=== PATIENT | female | born 1940 | race Caucasian/White ===

== ENCOUNTER 2018-06-22 07:42 | Emergency (ER) | payer MEDICARE ==
[~2018-06-22] VITALS: Ht 160 cm; Wt 79.0 kg
[~2018-06-22 07:42] MED LIST: ARIXTR SC; ASPIRIN LOW81 M1 PO; CINNAMON500 MG OR; LISINOPRIL5 MG PO; METHIMAZOLE5 MG; MULTIVITAMI1 OR; PEPCID20 MG PO; PERCOCET 5/325M1 TAB PO
[2018-06-22] MEDS ORDERED: LORATADINE10 M1 PO (08:07)
[2018-06-22] MEDS ORDERED: METFORMIN500 MG PO (08:07)
[2018-06-22 08:56] LABS: HEMATOCRIT 38.2 % (37.0-47.0); IMMATURE GRANULOCYTES 0.4 % (0.0-5.0); NEUT# 3.42 thou/uL (2.00-7.15); RED BLOOD COUNT 4.34 mill/uL (4.20-5.60)
[2018-06-22 09:16] LABS: ACT PARTIAL THROMBO TIME 25.6 SECONDS (20.0-32.5); ANION GAP 14 (6-22 (CALC)); BUN 14 mg/dL (8-23); BUN/CREATININE RATIO 22 (12-20 (CALC)); CARBON DIOXIDE 27 mmol/l (22-30); CHLORIDE 102 mmol/l (95-108); CREATININE 0.6 mg/dL (0.5-1.0); D-DIMER 0.32 mg/L (0.19-0.60); GFR > 60 ML/MIN (>=60 (CALC)); GFR FOR AFR.AMER. > 60 ML/MIN (>=60 (CALC)); PROTHROMBIN TIME 10.4 SECONDS (9.0-12.5); SODIUM 139 mmol/l (137-146)
[2018-06-22] MEDS ORDERED: VOLTAREN - GENE75 MG PO (09:54)
[2018-06-22 10:06] VITALS: BP 171/76
== END 2018-06-22 10:15 | disposition home or self-care (01) ==
LOC: ED 07:42
PROVIDERS: Family Medicine
DX: M17.12 Unilateral primary osteoarthritis, left knee (principal); M79.605 Pain in left leg; M79.662 Pain in left lower leg; Z86.718 Personal history of other venous thrombosis and embolism; Z79.82 Long term (current) use of aspirin; E11.9 Type 2 diabetes mellitus without complications; Z79.84 Long term (current) use of oral hypoglycemic drugs

== ENCOUNTER 2020-12-24 07:21 | Emergency (ER) | payer MEDICARE ==
[~2020-12-24 07:21] MED LIST changes: +LORATADINE10 M1 PO; +METFORMIN500 MG PO; +VOLTAREN - GENE75 MG PO
[2020-12-24] MEDS ORDERED: GABAPENTIN100 MG PO (08:29)
[2020-12-24] MEDS ORDERED: XALATAN0.005 % OU (08:30)
[2020-12-24 08:57] LABS: HEMATOCRIT 37.9 % (37.0-47.0); IMMATURE GRANULOCYTES 0.3 % (0.0-5.0); MEAN CELL VOLUME 87.1 fL CALC (80.0-100.0); MEAN CORPUSCULAR HGB 29.9 pG CALC (26.0-32.0); MEAN CORPUSCULAR HGB CONC 34.3 g/dL CAL (32.0-36.0); NEUT# 11.37 thou/uL (2.00-7.15); RED BLOOD COUNT 4.35 mill/uL (4.20-5.60); RED CELL DISTRI WIDTH 12.8 % (11.5-15.5)
[2020-12-24 08:58] LABS: URINE BILIRUBIN - DIPSTICK NEGATIVE (NEGATIVE); URINE BLOOD DIPSTICK LARGE (NEGATIVE); URINE GLUCOSE - DIPSTICK >=1000 mg/dL (NEGATIVE); URINE KETONE NEGATIVE (NEGATIVE); URINE PROTEIN - DIPSTICK 30 mg/dL (NEG-TRACE); URINE SPECIFIC GRAVITY 1.015; URINE UROBILINOGEN - DIPSTICK 0.2 E.U./dL (0.2)
[2020-12-24 09:03] LABS: URINE COLOR DK. YELLOW; URINE LEUK ESTERASE SMALL (NEGATIVE); URINE NITRITE - DIPSTICK POSITIVE (Negative)
[2020-12-24 09:04] LABS: URINE BACTERIA FEW hpf; URINE EPITHELIAL CELLS RARE EPI/hpf (0-FEW); URINE RBC 50-100 RBC/hpf (0-5)
[2020-12-24 09:21] LABS: ALBUMIN 4.5 g/dL (3.2-5.0); ALKALINE PHOSPHATASE 65 u/l (38-126); ANION GAP 14 (6-22 (CALC)); BILIRUBIN, TOTAL 0.7 mg/dL (0.0-1.4); BUN 14 mg/dL (8-23); BUN/CREATININE RATIO 21 (12-20 (CALC)); CARBON DIOXIDE 27 mmol/l (22-30); CHLORIDE 98 mmol/l (95-108); CREATININE 0.6 mg/dL (0.5-1.0); GFR > 60 ML/MIN (>=60 (CALC)); GFR FOR AFR.AMER. > 60 ML/MIN (>=60 (CALC)); POTASSIUM 4.2 mmol/l (3.5-5.1); SGOT/AST 28 u/l (9-36); SODIUM 135 mmol/l (137-146); TOTAL PROTEIN 7.4 g/dL (6.3-8.2)
[2020-12-24 09:52] LABS: TSH, 3RD GENERATION 0.19 uIU/mL (0.47 - 4.68)
[2020-12-24] MEDS ORDERED: CIPROFLOXACN500 MG PO (10:50)
[2020-12-24 10:57] VITALS: BP 150/85
== END 2020-12-24 11:10 | disposition home or self-care (01) ==
LOC: ED 07:21
DX: N39.0 Urinary tract infection, site not specified (principal); E03.9 Hypothyroidism, unspecified; E11.9 Type 2 diabetes mellitus without complications; B96.20 Unspecified Escherichia coli [E. coli] as the cause of diseases classified elsewhere; Z86.718 Personal history of other venous thrombosis and embolism; Z79.84 Long term (current) use of oral hypoglycemic drugs
CPT/HCPCS: J1956

== ENCOUNTER 2021-01-06 02:43 | Observation (INO) | payer MEDICARE ==
[~2021-01-06] VITALS: Ht 160 cm; Wt 83.0 kg
[~2021-01-06 02:43] MED LIST changes: +CIPROFLOXACN500 MG PO; +GABAPENTIN100 MG PO; +XALATAN0.005 % OU
--- NOTE | 2021-01-06 04:53 | NUR ---
PT IS RESTING COMFORTABLLY WITH NAD.
--- NOTE | 2021-01-06 05:47 | NUR ---
PT IS RESTING IN ROOM - STILL NO CHANGE IN CONDITION AND PT WILL BE UNDER OBSERVATION A LONGER PERIOD OF TIME
--- NOTE | 2021-01-06 06:38 | NUR ---
PT HAS BEEN INFORMED THAT SHE IS BEING ADMITTED TO OBS TO MONITOR ANGIOEDEMA.
[2021-01-06] MEDS ORDERED: CIPROFLOXACN500 MG PO (07:14)
--- NOTE | 2021-01-06 07:33 | NUR ---
PT RESTING ON STRETCHER, COMPLETED EKG/URINE COLLECTION/MED REC AND UPDATED PT ON PLAN OF CARE AND ABOUT PENDING ADMISSION. DELAY IS DISCUSSED WELL.
--- NOTE | 2021-01-06 08:19 | NUR ---
PT COMPLETED ABOUT 45% OF HER BFAST. SHE IS UPDATED ON PLAN OF CARE AND DELAY ON ADMISSION. PT VERBALIZED UNDERSTANDING.
--- NOTE | 2021-01-06 08:30 | NUR ---
GAVE REPORT TO JOSIAS
--- NOTE | 2021-01-06 08:43 | NUR ---
PT TRANSPORTED TO [facility] STABLE AND IN NO DISTRESS VIA W/C CARE ASSUMED TO JOSIAS Admission Note Report Given to: JOSIAS Transported by: X Wheelchair Stretcher Transported with: X Nurse Transporter X Patent IV O2 X Auto Machinist Location: ICU X MS2
[2021-01-06 08:44] VITALS: BP 144/70
--- NOTE | 2021-01-06 08:58 | NUR ---
REPORT RECEIVED FROM JACK IN ED, PT TRANSPORTED TO UNIT VIA W/C @ 0840, ALERT AND ORIENTED X 4, DENIES PAIN, ORIENTED TO ROOM AND CALL FERNANDEZ, INVENTORY LIST COMPLETED AND ALL REPORTED ITEMS CHECKED. EDUCATED ON ANTICOAGULATION PROTOCOL AND STATED UNDERSTANDING, CHALINO MURPHY APPLIED. SETTLED IN ROOM AT THIS TIME, CALL FERNANDEZ IN REACH.
[2021-01-06 10:58] VITALS: BP 143/78
--- NOTE | 2021-01-06 12:01 | NUR ---
ROUNDED, DISCUSSED PLAN OF CARE AND WROTE ORDERS, PT STATES UNDERSTANDING.
[2021-01-06] MEDS ORDERED: TOPROL XL25 MG PO (13:36)
[2021-01-06] MEDS ORDERED: PROTONIX40 M2 PO (13:48)
[2021-01-06] MEDS ORDERED: MEDDOSEPAK PO (13:57)
--- NOTE | 2021-01-06 15:15 | NUR ---
Discharge instructions given. Patient verbalizes understanding of same. Discharged in good condition via Wheelchair to Home with significant other. All belongings sent with pt.
== END 2021-01-06 15:15 | disposition home or self-care (01) ==
LOC: ED 02:43 → ED-I 06:20 → ED 06:33 → MS2 06:34
PROVIDERS: ADMIT Internal Medicine; ATTEND Internal Medicine
DX: T78.3XXA Angioneurotic edema, initial encounter (principal); T46.4X5A Adverse effect of angiotensin-converting-enzyme inhibitors, initial encounter; R00.0 Tachycardia, unspecified; I10 Essential (primary) hypertension; E11.40 Type 2 diabetes mellitus with diabetic neuropathy, unspecified; K21.9 Gastro-esophageal reflux disease without esophagitis; E05.90 Thyrotoxicosis, unspecified without thyrotoxic crisis or storm; Z79.84 Long term (current) use of oral hypoglycemic drugs; Z86.718 Personal history of other venous thrombosis and embolism; Z20.822 Contact with and (suspected) exposure to COVID-19
CPT/HCPCS: G0378

== ENCOUNTER 2023-08-09 10:16 | Day surgery (SDC) | payer MEDICARE ==
[~2023-08-09] VITALS: Ht 157.5 cm; Wt 70.8 kg
[~2023-08-09 10:16] MED LIST changes: +MEDDOSEPAK PO; +PROTONIX40 M2 PO; +TOPROL XL25 MG PO
[2023-08-09] MEDS ORDERED: PROTONIX40 M2 PO (11:00)
[2023-08-09] MEDS ORDERED: METAMUCIL28.3 % PO (11:05)
[2023-08-09] MEDS ORDERED: VITAMIN C + PO (11:06)
[2023-08-09] MEDS ORDERED: VITAMIN D-32000 UNI1 (11:06)
[2023-08-09] MEDS ORDERED: IRON325 M1 (11:07)
[2023-08-09 11:16] VITALS: BP 149/67
== END 2023-08-09 12:38 | disposition home or self-care (01) ==
LOC: ORM 10:16
PROVIDERS: ATTEND Internal Medicine Gastroenterology
DX: D3A.8 Other benign neuroendocrine tumors (principal); E05.90 Thyrotoxicosis, unspecified without thyrotoxic crisis or storm; Z53.09 Procedure and treatment not carried out because of other contraindication